=== PATIENT | male | born 1955 | race Caucasian/White ===

== ENCOUNTER 2016-12-12 13:29 | Inpatient (IN) | payer OTHER ==
[2016-12-12] MEDS ORDERED: ASPIRIN 81 MG CHEWABLE TABLETS PO ONE (13:52)
[2016-12-12] MEDS ORDERED: SODIUM CHLORIDE 500 ML IV STA (13:54)
[2016-12-12] MEDS ORDERED: chlordiazePOXIDE HCL 25 MG CAPSULE PO ONE (13:55)
[2016-12-12] MEDS ORDERED: NITROGLYCERIN SUBLINGUAL 1/150 0.4 MG TAB SL ONE (14:08)
[2016-12-12] MEDS ORDERED: ASPIRIN 325 MG TABLET ONE (14:09)
[2016-12-12] MEDS ORDERED: morphine CARPU-JECT 2 MG/1 ML DISP.SYRIN ONE (14:09)
[2016-12-12] MEDS: morphine CARPU-JECT 2 MG/1 ML DISP.SYRIN IVPUSH ONE ×2 (14:10→14:26)
--- NOTE | 2016-12-12 14:10 | PDOC ---
History of Present Illness - General Stated Complaint: CHEST PAIN Time Seen by Provider: 12/12/16 13:39 History Source: Patient Exam Limitations: No Limitations - History of Present Illness Initial Comments: 12/12/16 15:33 This is a 60 yo homeless M with PNH of EtOH abuse and smoking, who presents via ems with chest pain. He was sleeping on the park bench an hour before presentation when the chest pain started. it is left sided, 10/10, constant, sharp, nonradiating, and not associated with respiration. It is associated with diaphoresis, palpitations and sob. He had pain like this before for several months but it has been self limiting and not associated with exertion. He also complains of increased exertional dyspnea. he denies f/c, orthonea, cough, hemoptysis or LE edema. He as been a daily drinker for 20 yrs, 6 pack beer/day, not sure when last drink was. there is no alcohol smell on patient. He has been smoking pack/day for >20 yrs. He has no PCP f/u. He is unsure if he has been having bowel movements but does not recall bleeding from any site. PSH: emergency appendectomy 201112/12/16 15:39 12/12/16 15:40 Past History - Travel Traveled outside of the country in the last 30 days: No Close contact w/someone who was outside of country & ill: No - Past Medical History Allergies/Adverse Reactions: Allergies Allergy/AdvReac Type Severity Reaction Status Date / Time No Known Allergies Allergy Verified 12/12/16 14:23 Home Medications: Ambulatory Orders NK [No Known Home Medication] 12/12/16 Review of Systems - Review of Systems Able to Perform ROS?: Yes Is the patient limited Hebrew proficient: No Constitutional: Yes: Weakness. No: Chills, Fever, Night Sweats HEENTM: No: Double Vision, Nose Congestion, Nose Bleeding, Throat Pain, Difficulty Swallowing Respiratory: Yes: Shortness of Breath. No: Cough, Hemoptysis Cardiac (ROS): Yes: Chest Pain, Palpitations. No: Edema, Irregular Heart Rate, Lightheadedness, Syncope ABD/GI: No: Blood Streaked Bowels, Nausea, Rectal Bleeding, Vomiting, Abdominal cramping : No: Dysuria Musculoskeletal: No: Back Pain Integumentary: Yes: Sweating. No: Rash Neurological: No: Headache, Numbness, Paresthesia Psychiatric: No: Anxiety, Depression Endocrine: No: Change in Weight Hematologic/Lymphatic: No: Anemia, Blood Clots, Easy Bleeding, Easy Bruising All Other Systems: Reviewed and Negative *Physical Exam - Physical Exam Comments: 12/12/16 15:42 GENERAL: AAOX3 mild distress, diaphoretic, anxious HEENT: PERRLA EOMI conjunctiva clear, no scleral icterus CV: RRR S1S2 no JVD PULM:diffusely mildly restricted breath sounds GI: thin, diffusely mildly tender, nondistended, normoactive bowel sounds, no mass, no organomegaly NEURO: CN grossly intact, fine tremors in hands MUSCULOSKELETAL: no joint swelling, no peripheral edema Skin: mildly erythematous sunburnt face, hands and forearms Heart Score/ECG Review - History History: Moderately suspicious - Electrocardiogram EKG: Normal - Age Age: 45-65 - Risk Factors Risk Factors Heart Score: Yes Smoking History Based on the list above the patient has:: 1-2 risk factors - Troponin Troponin: </= normal limit - Score Heart Score - Total: 3 #1 General ECG Interpretation: Sinus Rhythm, Normal Rate, Normal Intervals, No acute ischemic changes ED Treatment Course - LABORATORY CBC & Chemistry Diagram: 12/12/16 15:40 12/12/16 15:40 - RADIOLOGY Radiology Studies Ordered: Category Date Time Status CHEST X-RAY PORTABLE* [RAD] Stat Radiology 12/12/16 13:59 Ordered Medical Decision Making - Medical Decision Making 12/12/16 15:44 60 yo homeless male smoker with EtOH abuse present with chest pain. also appears to exhibit EtOH withdrawal symptoms -EKG wnl -order trop, card profile, bnp, cbc diff, cmp, mag, tsh, coags, xcr -give asa, nitroglycerin, librium 50. -tele monitor -blood etoh level -u tox 12/12/16 16:47 patients cbc unremarkable, cmp unremarkable other than elevated CK trop, bnp negative blood EtOH negative utox not collected consult Dr Juaquin Garcia admit to telemetry *DC/Admit/Observation/Transfer Diagnosis at time of Disposition: Alcohol withdrawal Qualifiers: Complication of substance-induced condition: with unspecified complication Qualified Code(s): F10.239 - Alcohol dependence with withdrawal, unspecified Chest pain Qualifiers: Chest pain type: other chest pain Qualified Code(s): R07.89 - Other chest pain - Discharge Dispostion Admit: Yes
[2016-12-12 14:24] VITALS: BMI 25.0
--- NOTE | 2016-12-12 14:44 | PDOC ---
Attending Attestation - Resident Resident Name: Gayathri Zuniga - ED Attending Attestation I have performed the following: I have examined & evaluated the patient, The case was reviewed & discussed with the resident, I agree w/resident's findings & plan, Exceptions are as noted - HPI HPI: 12/12/16 14:35 60-year-old male with no past medical history, but because he never visited the doctor, undomiciled, chronic alcohol abuse presents with chest pain. Patient reports that today he was endorsing sharp chest pain radiating to his arms and associated short of breath. Reports some diaphoresis but denies vomiting. Unsure when his last cardiac workup was. Patient does smoke a pack of cigarettes. - Physicial Exam PE: 12/12/16 14:44 GENERAL: Awake, alert, and fully oriented. Mild tongue fasciculations. HEAD: No signs of trauma EYES: PERRLA, EOMI, sclera anicteric, conjunctiva clear ENT: Auricles normal inspection, hearing grossly normal, nares patent, oropharynx clear without exudates. NECK: Normal ROM, supple, no lymphadenopathy, JVD, or masses LUNGS: Breath sounds equal, clear to auscultation bilaterally. No wheezes, and no crackles HEART: Regular rate and rhythm, normal S1 and S2, no murmurs, rubs or gallops ABDOMEN: Soft, nontender, normoactive bowel sounds. No guarding, no rebound. No masses EXTREMITIES: Normal range of motion, no edema. No clubbing or cyanosis. No cords, erythema, or tenderness. Mild hand tremors bilaterally NEUROLOGICAL: Cranial nerves II through XII grossly intact. Normal speech, normal gait SKIN: Warm, Dry, normal turgor, no rashes or lesions noted. - Medical Decision Making 12/12/16 14:44 We'll need to rule out RI. Labs, EKG, aspirin. Given that he has no follow-up, should consider admission to the hospital. Heart Score/ECG Review - History History: Moderately suspicious - Electrocardiogram EKG: Normal - Age Age: 45-65 - Risk Factors Risk Factors Heart Score: Yes Smoking History Based on the list above the patient has:: 1-2 risk factors - Troponin Troponin: </= normal limit - Score Heart Score - Total: 3 #1 ECG reviewed & interpreted by me at: 14:10 12/12/16 14:45 NSR 73, no std/demarcus, normal axis, normal intervals, QTC 431 msec, normal axis , normal intervals
[2016-12-12 15:50] LABS: BASOPHIL 0.6 % (0-2.0); MCH 30.3 pg (25.7-33.7); MCHC 33.5 g/dl (32.0-35.9); MEAN CELL VOLUME 90.4 fl (80-96); MEAN PLT VOLUME 8.6 fl (7.5-11.1); NEUTROPHILS 67.9 % (42.8-82.8); PLATELET COUNT 243 K/MM3 (134-434); WHITE BLOOD COUNT 6.9 K/mm3 (4.0-10.0)
[2016-12-12 16:04] LABS: INR 1.15 (0.82-1.09); PROTHROMBIN TIME (PATIENT) 12.7 SEC (9.98-11.88)
[2016-12-12 16:12] LABS: ANION GAP 16 (8-16); BILIRUBIN,TOTAL 0.7 mg/dL (0.2-1.0); CALCIUM 8.5 mg/dL (8.5-10.1); CO2 21 mmol/L (21-32); COCKROFT - GAULT 96.86; CREATININE 0.8 mg/dL (0.7-1.3); GLUCOSE,RANDOM 53 mg/dL (74-106); SGOT/AST 31 U/L (15-37); SGPT/ALT 26 U/L (12-78); TOT PROT 5.2 g/dl (6.4-8.2)
[2016-12-12 16:14] LABS: ALK PHOS 71 U/L (45-117); TROPONIN I < 0.02 ng/ml (0.00-0.05)
[2016-12-12] MEDS ORDERED: ACETAMINOPHEN 325 MG TABLET (FP) PO PRN (16:50)
[2016-12-12] MEDS ORDERED: ONDANSETRON 4 MG/2 ML VIAL IVPB PRN (16:50)
[2016-12-12] MEDS ORDERED: chlordiazePOXIDE HCL 25 MG CAPSULE PO PRN (16:52)
--- NOTE | 2016-12-12 16:52 | PDOC ---
*Physical Exam - Vital Signs Last Vital Signs Temp Pulse Resp BP Pulse Ox 98 F 75 18 110/73 100 12/12/16 14:13 12/12/16 14:13 12/12/16 14:13 12/12/16 14:13 12/12/16 14:13 ED Treatment Course - LABORATORY CBC & Chemistry Diagram: 12/12/16 15:40 12/12/16 15:40 - ADDITIONAL ORDERS Additional order review: Laboratory Results 12/12/16 12/12/16 12/12/16 15:40 15:40 15:40 INR 1.15 H Sodium 143 Potassium 4.0 Chloride 106 Carbon Dioxide 21 Anion Gap 16 BUN 17 Creatinine 0.8 Creat Clearance w eGFR > 60 Random Glucose 53 L Calcium 8.5 Total Bilirubin 0.7 AST 31 ALT 26 Alkaline Phosphatase 71 Creatine Kinase 326 H Troponin I < 0.02 B-Natriuretic Peptide 89.29 Total Protein 5.2 L Albumin 3.0 L Alcohol, Quantitative < 5.0 12/12/16 15:40 RBC 4.38 MCV 90.4 MCHC 33.5 RDW 14.0 MPV 8.6 Neutrophils % 67.9 Lymphocytes % 18.0 Monocytes % 12.5 H Eosinophils % 1.0 Basophils % 0.6 - Medications Given in the ED: ED Medications Discontinued Medications Generic Name Dose Route Start Last Admin Trade Name Stacey PRN Reason Stop Dose Admin Aspirin 324 mg 12/12/16 13:52 12/12/16 14:10 Asa - PO 12/12/16 13:53 324 mg ONCE ONE Administration Chlordiazepoxide HCl 50 mg 12/12/16 13:55 12/12/16 14:11 Librium - PO 12/12/16 13:56 50 mg ONCE ONE Administration Sodium Chloride 500 mls @ 500 mls/hr 12/12/16 13:54 12/12/16 14:10 Normal Saline - IV 12/12/16 14:53 500 mls/hr ASDIR STA Administration Morphine Sulfate 2 mg 12/12/16 13:53 12/12/16 14:26 Morphine Injection - IVPUSH 12/12/16 13:54 Not Given ONCE ONE Nitroglycerin 0.4 mg 12/12/16 14:08 12/12/16 14:35 Nitrostat - SL 12/12/16 14:09 0.4 mg ONCE ONE Administration Medical Decision Making - Medical Decision Making 12/12/16 16:50 CBC, BMP 12/12/16 15:40 12/12/16 15:40 CMP Sodium 143 mmol/L (136-145) 12/12/16 15:40 Potassium 4.0 mmol/L (3.5-5.1) 12/12/16 15:40 Chloride 106 mmol/L (98-107) 12/12/16 15:40 Carbon Dioxide 21 mmol/L (21-32) 12/12/16 15:40 Anion Gap 16 (8-16) 12/12/16 15:40 BUN 17 mg/dL (7-18) 12/12/16 15:40 Creatinine 0.8 mg/dL (0.7-1.3) 12/12/16 15:40 Creat Clearance w eGFR > 60 (>60) 12/12/16 15:40 Random Glucose 53 mg/dL (74-106) L 12/12/16 15:40 Calcium 8.5 mg/dL (8.5-10.1) 12/12/16 15:40 Total Bilirubin 0.7 mg/dL (0.2-1.0) 12/12/16 15:40 AST 31 U/L (15-37) 12/12/16 15:40 ALT 26 U/L (12-78) 12/12/16 15:40 Alkaline Phosphatase 71 U/L (45-117) 12/12/16 15:40 Creatine Kinase 326 IU/L (39-308) H 12/12/16 15:40 Troponin I < 0.02 ng/ml (0.00-0.05) 12/12/16 15:40 B-Natriuretic Peptide 89.29 pg/ml (5-125) 12/12/16 15:40 Total Protein 5.2 g/dl (6.4-8.2) L 12/12/16 15:40 Albumin 3.0 g/dl (3.4-5.0) L 12/12/16 15:40 Trop negative. Pt will be admitted for alcohol withdrawal and DOTTY. Case discussed with [facility] hospitalist. Case admitted to [facility] hospitalist. *DC/Admit/Observation/Transfer Diagnosis at time of Disposition: Alcohol withdrawal syndrome Qualifiers: Complication of substance-induced condition: with unspecified complication Qualified Code(s): F10.239 - Alcohol dependence with withdrawal, unspecified Chest pain Qualifiers: Chest pain type: other chest pain Qualified Code(s): R07.89 - Other chest pain ; R07.8 - Other chest pain - Discharge Dispostion Condition at time of disposition: Stable Admit: Yes
--- NOTE | 2016-12-12 16:53 | HP ---
CHIEF COMPLAINT: Chest pain PCP: None HISTORY OF PRESENT ILLNESS: This is a 60 year old male with a history of daily EtOH use and withdrawal seizure approximately 3 weeks ago who presents complaining of lightheadedness and chest pain. He has had intermittent, sharp, left-sided chest pain throughout the day. It does not seem related to exertion. He does not have any associated shortness of breath, nausea, diaphoresis, or any other symptoms. ER course was notable for: (1) EKG: NSR at 75 bpm (2) Troponin <0.02 (3) CXR: No acute process (4) Noted to be tremulous - medicated with Librium 50mg po Recent Travel: None PAST MEDICAL HISTORY: None PAST SURGICAL HISTORY: None Social History: Homeless Smokin ppd Alcohol: 6-pack beer Drugs: None Family History: No known family history of CAD or early Allergies No Known Allergies Allergy (Verified 12/12/16 14:23) HOME MEDICATIONS: Home Medications Medication Instructions Recorded NK [No Known Home Medication] 12/12/16 REVIEW OF SYSTEMS CONSTITUTIONAL: Absent: fever, chills, diaphoresis, generalized weakness, malaise, loss of appetite, weight change HEENT: Absent: rhinorrhea, nasal congestion, throat pain, throat swelling, difficulty swallowing, mouth swelling, ear pain, eye pain, visual changes CARDIOVASCULAR: See HPI RESPIRATORY: Absent: cough, shortness of breath, dyspnea with exertion, orthopnea, wheezing, stridor, hemoptysis GASTROINTESTINAL: Absent: abdominal pain, abdominal distension, nausea, vomiting, diarrhea, constipation, melena, hematochezia GENITOURINARY: Absent: dysuria, frequency, urgency, hesitancy, hematuria, flank pain, genital pain MUSCULOSKELETAL: Absent: myalgia, arthralgia, joint swelling, back pain, neck pain SKIN: Absent: rash, itching, pallor HEMATOLOGIC/IMMUNOLOGIC: Absent: easy bleeding, easy bruising, lymphadenopathy, frequent infections ENDOCRINE: Absent: unexplained weight gain, unexplained weight loss, heat intolerance, cold intolerance NEUROLOGIC: Absent: headache, focal weakness or paresthesias, dizziness, unsteady gait, seizure, mental status changes, bladder or bowel incontinence PSYCHIATRIC: Absent: anxiety, depression, suicidal or homicidal ideation, hallucinations. PHYSICAL EXAMINATION Vital Signs - 24 hr 12/12/16 14:13 Temperature 98 F Pulse Rate 75 Respiratory 18 Rate Blood Pressure 110/73 O2 Sat by Pulse 100 Oximetry (%) GENERAL: Awake, alert, and fully oriented, in no acute distress. HEAD: Normal with no signs of trauma. EYES: Pupils equal, round and reactive to light, extraocular movements intact, sclera anicteric, conjunctiva clear. No lid lag. EARS, NOSE, THROAT: Ears normal, nares patent, oropharynx clear without exudates. Moist mucous membranes. NECK: Normal range of motion, supple without lymphadenopathy, JVD, or masses. LUNGS: Breath sounds equal, clear to auscultation bilaterally. No wheezes, and no crackles. No accessory muscle use. HEART: Regular rate and rhythm, normal S1 and S2 without murmur, rub or gallop. ABDOMEN: Soft, nontender, not distended, normoactive bowel sounds, no guarding, no rebound, no masses. No hepatomegaly or splenomegaly. MUSCULOSKELETAL: Normal range of motion at all joints. No bony deformities or tenderness. No CVA tenderness. UPPER EXTREMITIES: 2+ pulses, warm, well-perfused. No cyanosis. No clubbing. No peripheral edema. LOWER EXTREMITIES: 2+ pulses, warm, well-perfused. No calf tenderness. No peripheral edema. NEUROLOGICAL: No tremors or tongue fasciculations. Cranial nerves II-XII intact. Normal speech. Normal gait. PSYCHIATRIC: Cooperative. Good eye contact. Appropriate mood and affect. SKIN: Warm, dry, normal turgor, no rashes or lesions noted, normal capillary refill. Laboratory Results - last 24 hr 12/12/16 12/12/16 12/12/16 15:40 15:40 15:40 WBC 6.9 RBC 4.38 Hgb 13.3 Hct 39.6 MCV 90.4 MCHC 33.5 RDW 14.0 Plt Count 243 MPV 8.6 Neutrophils % 67.9 Lymphocytes % 18.0 Monocytes % 12.5 H Eosinophils % 1.0 Basophils % 0.6 INR 1.15 H Sodium 143 Potassium 4.0 Chloride 106 Carbon Dioxide 21 Anion Gap 16 BUN 17 Creatinine 0.8 Creat Clearance w eGFR > 60 Random Glucose 53 L Calcium 8.5 Total Bilirubin 0.7 AST 31 ALT 26 Alkaline Phosphatase 71 Creatine Kinase 326 H Troponin I < 0.02 B-Natriuretic Peptide 89.29 Total Protein 5.2 L Albumin 3.0 L Alcohol, Quantitative 12/12/16 15:40 WBC RBC Hgb Hct MCV MCHC RDW Plt Count MPV Neutrophils % Lymphocytes % Monocytes % Eosinophils % Basophils % INR Sodium Potassium Chloride Carbon Dioxide Anion Gap BUN Creatinine Creat Clearance w eGFR Random Glucose Calcium Total Bilirubin AST ALT Alkaline Phosphatase Creatine Kinase Troponin I B-Natriuretic Peptide Total Protein Albumin Alcohol, Quantitative < 5.0 ASSESSMENT/PLAN: Problem List - Problem (1) Chest pain Assessment/Plan: -Monitor on telemetry -Serial troponins to rule out SC -Check lipid profile Code(s): R07.9 - CHEST PAIN, UNSPECIFIED Qualifiers: Chest pain type: other chest pain Qualified Code(s): R07.89 - Other chest pain; R07.8 - Other chest pain (2) Alcohol withdrawal Assessment/Plan: -Librium taper -Fall precautions -Patient amenable to dc to detox if he can be accepted without insurance Code(s): F10.239 - ALCOHOL DEPENDENCE WITH WITHDRAWAL, UNSPECIFIED Qualifiers : Complication of substance-induced condition: with unspecified complication Qualified Code(s): F10.239 - Alcohol dependence with withdrawal, unspecified (3) DVT prophylaxis Assessment/Plan: -Lovenox 40mg sq daily Code(s): [id number] - Visit type - Emergency Visit Emergency Visit: Yes Care time: The patient presented to the Emergency Department on the above date and was hospitalized for further evaluation of their emergent condition. - New Patient This patient is new to me today: Yes Date on this admission: 12/12/16 - Critical Care Critical Care patient: No
[2016-12-12] MEDS ORDERED: chlordiazePOXIDE HCL 25 MG CAPSULE ONE ×2 (18:13→22:50)
[2016-12-12] MEDS: chlordiazePOXIDE HCL 25 MG CAPSULE PO SCH ×2 (18:13→22:58)
[2016-12-13 06:23] LABS: BASOPHIL 0.5 % (0-2.0); EOSINOPHIL 2.8 % (0-4.5); MCH 30.6 pg (25.7-33.7); MCHC 33.9 g/dl (32.0-35.9); MEAN CELL VOLUME 90.4 fl (80-96); MEAN PLT VOLUME 8.3 fl (7.5-11.1); NEUTROPHILS 56.3 % (42.8-82.8); PLATELET COUNT 246 K/MM3 (134-434); RDW 14.3 % (11.9-15.9); WHITE BLOOD COUNT 4.8 K/mm3 (4.0-10.0)
[2016-12-13 07:03] LABS: ALBUMIN 2.8 g/dl (3.4-5.0); ANION GAP 7 (8-16); CALCIUM 8.5 mg/dL (8.5-10.1); CHOLESTEROL 122 mg/dL (50-200); CO2 25 mmol/L (21-32); COCKROFT - GAULT 110.69; CREATININE 0.7 mg/dL (0.7-1.3); GLUCOSE,RANDOM 89 mg/dL (74-106); SGOT/AST 26 U/L (15-37); SGPT/ALT 24 U/L (12-78)
[2016-12-13 07:05] LABS: ALK PHOS 66 U/L (45-117); BILIRUBIN,TOTAL 0.4 mg/dL (0.2-1.0); LDL CHOLESTEROL (ONLY SJRH) 50 mg/dL (5-100); TROPONIN I < 0.02 ng/ml (0.00-0.05)
[2016-12-13] MEDS ORDERED: chlordiazePOXIDE HCL 25 MG CAPSULE ONE ×2 (07:10→09:47)
[2016-12-13] MEDS: chlordiazePOXIDE HCL 25 MG CAPSULE PO SCH ×3 (07:18→17:20)
[2016-12-13] MEDS: ENOXAPARIN NA (PORCINE) 40 MG/0.4 ML DISP.SYRIN SQ SCH (09:48)
--- NOTE | 2016-12-13 10:58 | CONSULT ---
Consult Detox [facility] Reason for Current Admission/Consult: Alcohol escobar sx - Alcohol/Substance Use Hx Alcohol Use: Yes - Current Drug/Alcohol Use Alcohol Route: Oral Frequency: Daily Amount used: Beer (6pack) Assessment Plan - Diagnosis (1) Alcohol dependence with uncomplicated withdrawal Status: Acute - Medication Detox Regimen/Protocol: Librium
--- NOTE | 2016-12-13 12:35 | CON.CARD ---
Consult Consult Specialty:: Cardiology Referred by:: Hospitalist Medicine Reason for Consultation:: Chest pain - History of Present Illness Chief Complaint: Chest pain History of Present Illness: Pt is a 60 year old male with a history of daily tobacco and EtOH use and withdrawal seizure approximately 3 weeks ago who presents complaining of lightheadedness and chest pain. He has had intermittent, sharp, left-sided chest pain throughout the day. It does not seem related to exertion and denies associated shortness of breath, nausea, diaphoresis, near or true syncope, palpitations, orthopnea, PND or LE edema, ruled out for HI, EKG unremarkable, patient is tremulous. - History Source History Provided By: Medical Record Limitations to Obtaining History: Poor Historian - Alcohol/Substance Use Hx Alcohol Use: Yes - Smoking History Smoking history: Current every day smoker Aproximately how many cigarettes per day: 20 Home Medications - Allergies Allergies/Adverse Reactions: Allergies Allergy/AdvReac Type Severity Reaction Status Date / Time No Known Allergies Allergy Verified 12/12/16 14:23 - Home Medications Home Medications: Ambulatory Orders NK [No Known Home Medication] 12/12/16 Review of Systems - Review of Systems Cardiovascular: reports: Chest Pain Neurological: reports: Tremors Vital Signs: Vital Signs Temperature 97.8 F 12/13/16 04:59 Pulse Rate 71 12/13/16 12:24 Respiratory Rate 18 12/13/16 12:24 Blood Pressure 94/52 12/13/16 12:24 O2 Sat by Pulse Oximetry (%) 99 12/13/16 12:24 Constitutional: Yes: No Distress, Calm Neck: Yes: Supple Respiratory: Yes: Regular, CTA Bilaterally Gastrointestinal: Yes: Normal Bowel Sounds, Soft Cardiovascular: Yes: Regular Rate and Rhythm JVD: No Carotid Bruit: No Heart Sounds: Yes: S1, S2 Edema: No - Other Data Labs, Other Data: CBC, BMP 12/13/16 06:00 12/13/16 06:35 INR, PTT INR 1.15 (0.82-1.09) H 12/12/16 15:40 Troponin, BNP 12/13/16 06:35 Troponin I < 0.02 Troponin, BNP 12/13/16 06:35 Troponin I < 0.02 NSR @ [address]-T changes Imaging - Results Chest X-ray: Report Reviewed (NAD) Problem List - Problems (1) Alcohol dependence with uncomplicated withdrawal Code(s): F10.230 - ALCOHOL DEPENDENCE WITH WITHDRAWAL, UNCOMPLICATED (2) Chest pain Code(s): R07.9 - CHEST PAIN, UNSPECIFIED Qualifiers: Chest pain type: other chest pain Qualified Code(s): R07.89 - Other chest pain; R07.8 - Other chest pain (3) Tobacco abuse Code(s): Z72.0 - TOBACCO USE Assessment/Plan 1. Chest pain syndrome with atypical features 2. ETOH dependence with withdrawal 3. Tobacco abuse P:1. Ruled out for HI 2. F/u echo to r/o cardiomyopathy 3. Librium detox 4. Thank you for consultative opportunity
[2016-12-13] MEDS ORDERED: FOLIC ACID INJECTION - 1 MG, THIAMINE HCL 100 MG, MULTIVIT INJECTION ADULT 10 ML in SOD... IVPB ONE (13:00)
--- NOTE | 2016-12-13 13:06 | PN ---
Physical Exam: SUBJECTIVE: Patient seen and examined on stretcher in ED. Complaining of chest pain x several days. Feels like his heart beating hard. Intermittent. Not associated with exertion. Relates h/o years of alcohol abuse, upper and lower GI bleeding. Homeless, took the bus from [facility] and got off in [facility]. Was sleeping on a bench when a passerby called an ambulance. OBJECTIVE: Vital Signs Period Temp Pulse Resp BP Sys/Adler Pulse Ox Last 24 Hr 97.8 F-98.4 F 71-96 18-20 94-110/52-74 96-99 GENERAL: The patient is awake, alert. Tremulous. Unkempt. HEAD: Normal with no signs of trauma. EYES: PERRL, extraocular movements intact, injected sclera and conjunctiva. No ptosis. LUNGS: Breath sounds equal, clear to auscultation bilaterally, no wheezes, no crackles, no accessory muscle use. HEART: Regular rate and rhythm, S1, S2 without murmur, rub or gallop. ABDOMEN: Soft, nontender, nondistended, normoactive bowel sounds, no guarding, no rebound EXTREMITIES: 2+ pulses, warm, well-perfused, no edema. NEUROLOGICAL: Cranial nerves II through XII grossly intact. Normal speech, gait not observed. Laboratory Results - last 24 hr 12/13/16 12/13/16 12/13/16 06:00 06:00 06:35 WBC 4.8 D RBC 4.40 Hgb 13.5 Hct 39.7 MCV 90.4 MCHC 33.9 RDW 14.3 Plt Count 246 MPV 8.3 Neutrophils % 56.3 Lymphocytes % 29.6 D Monocytes % 10.8 H Eosinophils % 2.8 D Basophils % 0.5 Sodium 143 Potassium 3.7 Chloride 111 H Carbon Dioxide 25 Anion Gap 7 L BUN 12 D Creatinine 0.7 Creat Clearance w eGFR > 60 Random Glucose 89 D Hemoglobin A1c % 4.7 L Calcium 8.5 Magnesium 2.0 Total Bilirubin 0.4 D AST 26 ALT 24 Alkaline Phosphatase 66 Creatine Kinase 180 D Creatine Kinase Index 1.3 CK-MB (CK-2) 2.259 CK-MB (CK-2) Rel Index Troponin I < 0.02 Total Protein 5.0 L Albumin 2.8 L Triglycerides 86 Cholesterol 122 Total LDL Cholesterol 50 HDL Cholesterol 59 12/13/16 06:35 WBC RBC Hgb Hct MCV MCHC RDW Plt Count MPV Neutrophils % Lymphocytes % Monocytes % Eosinophils % Basophils % Sodium Potassium Chloride Carbon Dioxide Anion Gap BUN Creatinine Creat Clearance w eGFR Random Glucose Hemoglobin A1c % Calcium Magnesium Total Bilirubin AST ALT Alkaline Phosphatase Creatine Kinase Creatine Kinase Index CK-MB (CK-2) CK-MB (CK-2) Rel Index Cancelled Troponin I Total Protein Albumin Triglycerides Cholesterol Total LDL Cholesterol HDL Cholesterol Active Medications Generic Name Dose Route Start Last Admin Trade Name Freq PRN Reason Stop Dose Admin Acetaminophen 650 mg 12/12/16 16:50 Tylenol - PO Q6H PRN FEVER OR PAIN Chlordiazepoxide HCl 25 mg 12/12/16 16:52 Librium - PO 12/15/16 16:51 Q4H PRN WITHDRAWAL(CONT SUBST) Chlordiazepoxide HCl 25 mg 12/13/16 17:00 Librium - PO 12/14/16 11:01 F4M-LSD VIOLETTA Chlordiazepoxide HCl 15 mg 12/14/16 17:00 Librium - PO 12/15/16 11:01 [id number] VIOLETTA Enoxaparin Sodium 40 mg 12/13/16 10:00 12/13/16 09:48 Lovenox - SQ 40 mg DAILY [facility] Administration Folic Acid 1 mg 12/14/16 10:00 Folic Acid - PO DAILY [facility] Folic Acid 1 mg/ Thiamine HCl 1,000 mls @ 125 mls/hr 12/13/16 12:48 100 mg/ Multivitamins/Minerals IVPB 12/13/16 20:47 10 ml/ Sodium Chloride ONCE ONE Ondansetron HCl 4 mg 12/12/16 16:50 Zofran Injection IVPB Q6H PRN NAUSEA Thiamine HCl 100 mg 12/14/16 10:00 Vitamin B1 - PO DAILY [facility] ASSESSMENT/PLAN 60 year-old man, homeless, h/o ETOH abuse, upper and lower GI bleed, and withdrawal seizures. Admitted for chest pain and acute alcohol intoxication. Chest pain --rule out ACS: two troponins negative, third pending; CXR unremarkable; ECG not suggestive of acute ischemic event; echo pending; seen and evaluated by cardiology Acute alcohol withdrawal --cannot recall last time without a drink but claims does not drink every day --librium protocol Chronic alcohol abuse h/o GI bleed --Protonix PO daily --banana bag --daily thiamine, folate F/E/N Fluids: PO intake adequate Electrolytes: replete as indicated Nutrition: regular diet DVT prophylaxis: lovenox, oob, ambulation Dispo: continues to require inpatient care. Full Code. Visit type - Emergency Visit Emergency Visit: Yes ED Registration Date: 12/12/16 Care time: The patient presented to the Emergency Department on the above date and was hospitalized for further evaluation of their emergent condition. - New Patient This patient is new to me today: Yes Date on this admission: 12/13/16 - Critical Care Critical Care patient: No
--- NOTE | 2016-12-13 14:09 | EKG ---
Test Reason : Blood Pressure : / mmHG Vent. Rate : 075 BPM Atrial Rate : 075 BPM P-R Int : 122 ms QRS Dur : 100 ms QT Int : 392 ms P-R-T Axes : 079 076 046 degrees QTc Int : 437 ms NORMAL SINUS RHYTHM NORMAL ECG NO PREVIOUS ECGS AVAILABLE Confirmed by PIERCE SANTIAGO MD ([id number]) on 12/13/2016 2:09:31 PM Referred By: SAMUEL Confirmed By:PIERCE SANTIAGO MD
[2016-12-13] MEDS: PANTOPRAZOLE 40 MG TABLET (FP) PO SCH (17:20)
[2016-12-14] MEDS: chlordiazePOXIDE HCL 25 MG CAPSULE PO SCH ×3 (00:12→12:13)
[2016-12-14 07:00] LABS: BASOPHIL 0.4 % (0-2.0); EOSINOPHIL 2.4 % (0-4.5); MCH 31.4 pg (25.7-33.7); MCHC 34.9 g/dl (32.0-35.9); MEAN CELL VOLUME 89.8 fl (80-96); MEAN PLT VOLUME 8.1 fl (7.5-11.1); NEUTROPHILS 60.7 % (42.8-82.8); PLATELET COUNT 189 K/MM3 (134-434); RDW 14.3 % (11.9-15.9); WHITE BLOOD COUNT 4.5 K/mm3 (4.0-10.0)
[2016-12-14 07:35] LABS: ALBUMIN 2.6 g/dl (3.4-5.0); ANION GAP 9 (8-16); CALCIUM 8.7 mg/dL (8.5-10.1); CO2 24 mmol/L (21-32); GLUCOSE,RANDOM 106 mg/dL (74-106); MAGNESIUM 2.1 mg/dL (1.8-2.4)
[2016-12-14 07:40] LABS: ALK PHOS 58 U/L (45-117); BILIRUBIN,TOTAL 0.3 mg/dL (0.2-1.0); COCKROFT - GAULT 154.97; CREATININE 0.5 mg/dL (0.7-1.3); SGOT/AST 19 U/L (15-37); SGPT/ALT 23 U/L (12-78); TOT PROT 4.6 g/dl (6.4-8.2)
[2016-12-14] MEDS: PANTOPRAZOLE 40 MG TABLET (FP) PO SCH (09:33)
[2016-12-14] MEDS: ENOXAPARIN NA (PORCINE) 40 MG/0.4 ML DISP.SYRIN SQ SCH (09:33)
[2016-12-14 10:00] VITALS: BP 106/53; PULSE 71; TEMP 97.9
[2016-12-14] MEDS ORDERED: THIAMINE HCL 100 MG TABLET (FP) PO SCH (10:00)
[2016-12-14] MEDS ORDERED: FOLIC ACID 1 MG TABLET (FP) PO SCH (10:00)
--- NOTE | 2016-12-14 11:37 | PN ---
Progress Note (short form) - Note Progress Note: Chief Complaint: Events noted, notes reviewed, continues to report chest discomfort which is exacerbated by certain movements, denies any dyspnea History of Present Illness: Seen and examined on telemetry. Events noted, notes reviewed, continues to report chest discomfort which is exacerbated by certain movements, denies any dyspnea Echocardiography revealed normal left and right ventricular systolic function with trace mitral and tricuspid valve regurgitation Medications: Current Medications Acetaminophen (Tylenol -) 650 mg PO Q6H PRN PRN Reason: FEVER OR PAIN Chlordiazepoxide HCl (Librium -) 25 mg PO Q4H PRN PRN Reason: WITHDRAWAL(CONT SUBST) Stop: 12/15/16 16:51 Chlordiazepoxide HCl (Librium -) 15 mg PO [id number] [facility] Stop: 12/15/16 11:01 Enoxaparin Sodium (Lovenox -) 40 mg SQ DAILY [facility] Last Admin: 12/14/16 09:33 Dose: 40 mg Folic Acid (Folic Acid -) 1 mg PO DAILY [facility] Last Admin: 12/14/16 09:33 Dose: 1 mg Ondansetron HCl (Zofran Injection) 4 mg IVPB Q6H PRN PRN Reason: NAUSEA Pantoprazole Sodium (Protonix -) 40 mg PO DAILY [facility] Last Admin: 12/14/16 09:33 Dose: 40 mg Thiamine HCl (Vitamin B1 -) 100 mg PO DAILY [facility] Last Admin: 12/14/16 09:33 Dose: 100 mg Review of Systems Cardiovascular: As noted above Respiratory: denies: Cough or Sputum Production Gastrointestinal: denies: Nausea, Vomiting, Diarrhea, Constipation or Abdominal Discomfort Musculoskeletal: No Symptoms Reported Endocrine: No Symptoms Reported Vital Signs: Last Vital Signs Temp Pulse Resp BP Pulse Ox 97.9 F 71 20 106/53 97 12/14/16 09:54 12/14/16 09:54 12/14/16 09:54 12/14/16 09:54 12/14/16 09:54 Constitutional: No Distress, Calm Neck: Supple negative JVD no bruit Respiratory: clear to auscultation and percussion bilaterally Cardiovascular: S1 S2 Regular Rate and Rhythm Gastrointestinal: soft benign Normal Bowel Sounds Ext: No Edema Labs: CBC, BMP 12/14/16 05:35 12/14/16 05:35 Troponin, BNP 12/13/16 12:49 Troponin I < 0.02 Assessment/Plan ASSESSMENT: 1. Chest pain syndrome atypical for coronary artery disease angina pectoriss 2. ETOH dependence with withdrawal 3. Tobacco abuse PLAN: 1. Continue Librium detox 2. No additional cardiovascular evaluation is indicated at this point for the above-noted atypical chest pain syndrome and patient can be transferred to floor care or alcohol rehabilitation unit Su Chery M.D.
[2016-12-14] MEDS ORDERED: chlordiazePOXIDE 5 MG CAPSULE PO SCH (17:00)
--- NOTE | 2016-12-14 18:15 | DS ---
Physical Exam: SUBJECTIVE: Patient seen and examined. He denies SOB, his cp is reproducible. He says he doesn't do drugs and when he drinks its beer, his last drink was a few days ago and it was just x1 beer. OBJECTIVE: Vital Signs Period Temp Pulse Resp BP Sys/Adler Pulse Ox Last 24 Hr 97.8 F-98.9 F 68-74 18-20 104-118/53-70 97-98 PE Neuro: alert, awake, cn 2-12intact, mental slowing HEENT: poor dentition Pulm: clear, no sob, no wheezing CV: s1 s2 no mrg, mild + reproducible CP Abd: s nt nd + bs Ext: warm, no le edema Laboratory Results - last 24 hr 12/14/16 12/14/16 05:35 05:35 WBC 4.5 RBC 4.14 Hgb 13.0 Hct 37.1 MCV 89.8 MCHC 34.9 RDW 14.3 Plt Count 189 D MPV 8.1 Neutrophils % 60.7 Lymphocytes % 25.9 Monocytes % 10.6 H Eosinophils % 2.4 Basophils % 0.4 Sodium 145 Potassium 3.8 Chloride 112 H Carbon Dioxide 24 Anion Gap 9 BUN 7 D Creatinine 0.5 L D Creat Clearance w eGFR > 60 Random Glucose 106 Calcium 8.7 Magnesium 2.1 Total Bilirubin 0.3 D AST 19 D ALT 23 Alkaline Phosphatase 58 Total Protein 4.6 L Albumin 2.6 L HOSPITAL COURSE: Date of Admission:12/12/16 Date of Discharge: 12/14/16 Minutes to complete discharge: 36 Discharge Summary Reason For Visit: CP/ALCOHOL WITHDRAWAL SYNDROME Current Active Problems Alcohol dependence with uncomplicated withdrawal (Acute) Alcohol withdrawal (Acute) Chest pain (Acute) DVT prophylaxis (Acute) Tobacco abuse (Acute) Hospital Course: Initial Hospital Course: Briefly, this 60 year old male with a history of daily EtOH presented with lightheadedness and chest pain. He was sleeping on the park bench an hour before EMS picked him up with chest pain. Left sided, 10/10, constant, sharp, nonradiating, and not associated with respiration. It does not seem related to exertion. He reports drinking for 20 yrs, 6 pack beer/day, not sure when last drink was. There was no alcohol smell on patient in ED. He has been smoking pack/day for > 20 yrs. He was started on librium for tremors Subsequent Hospital Course/Progress Note/Discharge Summary: 1. Chest pain syndrome with atypical features - Likely reproducible - Rule out [place] trops x2 negative - ECHO 12/13: revealed normal left and right ventricular systolic function with trace mitral and tricuspid valve regurgitation 2. ETOH dependence - Alcohol level <5 - No acute signs of withdrawal on discharge - Outpt referrals for rehab and programs given and review at bedside 3. Tobacco abuse Dispo: - Discharge to [facility] for long term placement pt agrees Condition: Stable - Instructions Diet, Activity, Other Instructions: Please return to the ED for any new, persistent, or worsening, symptoms. Follow up with your PCP in 1 week (referral enclosed) Taxi voucher will send you to [facility] for long term placement Referrals: Flaco Funez MD [Staff Physician] - Disposition: HOME - Home Medications Comprehensive Discharge Medication List: Ambulatory Orders NK [No Known Home Medication] 12/12/16 This patient is new to me today: Yes Date on this admission: 12/14/16 Emergency Visit: Yes ED Registration Date: 12/12/16 Care time: The patient presented to the Emergency Department on the above date and was hospitalized for further evaluation of their emergent condition. Critical Care patient: No - Discharge Referral Referred to [facility] No
== END 2016-12-14 15:47 | disposition home or self-care (01) | DRG 897 ==
LOC: JER 13:29 → JERBED 16:52 → UNDOADMIN 17:28 → J4W 12-13 15:20
PROVIDERS: ADMIT Internal Medicine; ATTEND Nurse Practitioner Acute Care
PROC: HZ2ZZZZ Detoxification Services for Substance Abuse Treatment (ICD-10-PCS; principal; 2016-12-12)
DX: F10.239 Alcohol dependence with withdrawal, unspecified (principal); R07.9 Chest pain, unspecified; F17.210 Nicotine dependence, cigarettes, uncomplicated; Z59.0 Homelessness
CPT/HCPCS: 36415; 71010-TC; 80053; 80061; 80307; 82550; 82553; 83036; 83721; 83735; 83880; 84484; 85025; 85610; 93005; 93010; 93306-TC; 99284-25